=== PATIENT | male | born 1975 | race Caucasian/White ===

== ENCOUNTER 2020-10-22 00:48 | Day surgery (SDC) | payer OTHER, SELFPAY ==
[2020-10-13 14:02] VITALS: BMI 20.5
--- NOTE | 2020-10-21 19:44 | P.HP_ITS ---
History of Present Illness History of Present Illness Consent: Risks, benefits, and alternatives have been discussed and questions answered. Patient agrees to proceed with procedure. Chief complaint: neoplasm screening Narrative: Jomar Duron is a 45 year old male referred for colon cancer screening Review of Systems Review of Systems: All systems reviewed & are unremarkable except as noted in HPI and below [facility] Social History Social History Smoking status: Never smoker Alcohol use details: RARELY Substance use: never Substance use type: does not use Living arrangements: with family Spiritual care concerns: No Meds Home Medications and Allergies Home Medications Medication Instructions Recorded Confirmed Type No Home Medications 10/13/20 10/13/20 History Allergies Allergy/AdvReac Type Severity Reaction Status Date / Time No Known Allergies Allergy Verified 10/22/20 08:15 Exam Resp: Auscultation: clear to auscultation bilaterally Cardio: Rate: regular rate Rhythm: regular rhythm GI: GI Palp: Yes Soft to palpation and No Tenderness to palpation present (GI) Assessment and Plan Assessment and plan (1) Colon cancer screening: Code(s): Z12.11 - Encounter for screening for malignant neoplasm of colon Status: Acute Assessment and Plan: Colonoscopy with possible biopsy or polypectomy or cautery or injection of substances.
[2020-10-22 08:16] VITALS: BP 130/79; PULSE 96; RESP 16; TEMP 36.6; O2SAT 100
--- NOTE | 2020-10-22 08:25 | WPDANESEPPF ---
Anes - Initial Pre Proc Eval Procedure: Operation Date: 10/22/20 09:30 Proposed Procedures p Screening Colonoscopy - Royal Moreno MD Date/Time: 10/22/20 08:25 Surgeon: Royal Moreno MD Pre Op Diagnosis: neoplasm screening Patient Data Age: 45 Gender: M Height: 1.91 m Weight: 72.6 kg Last Vital Signs Temp 36.6 C 10/22/20 08:16 Pulse 96 10/22/20 08:16 Resp 16 10/22/20 08:16 BP 130/79 10/22/20 08:16 Pulse Ox 100 10/22/20 08:16 Allergies Allergy/AdvReac Type Severity Reaction Status Date / Time No Known Allergies Allergy Verified 10/22/20 08:15 Home Medications Medication Instructions Recorded Confirmed Type No Home Medications 10/13/20 10/13/20 History Patient hx anesthesia problems: none Family hx anesthesia problems: none PMFSH Social History Social History Smoking status: Never smoker Alcohol use details: RARELY Substance use: never Substance use type: does not use Living arrangements: with family Spiritual care concerns: No Anes - Eval Final PreProcedure Day of Procedure 10/22/20 08:25 Patient weight: normal Heart: regular rate and rhythm Lungs: clear to auscultation and normal air movement Airway: Mallampati scale class II Neurological: alert and oriented Last oral intake: >/= 8 hours ASA classification: I Emergent: no Anesthetic plan: proceed Anesthesia type and monitoring: general GIVS Informed Consent: The patient's anesthetic plan and its attendant risks and benefits were discussed with the patient/family/POA. Questions were solicited and answers provided to the satisfaction of the patient/family/POA.
[2020-10-22] MEDS: LACTATED RINGERS 1,000 ML 150 ML IV CONT (08:31)
[2020-10-22 09:35] VITALS: BP 92/45; PULSE 71; RESP 17; O2SAT 100
[2020-10-22 09:45] VITALS: BP 111/57; PULSE 78; RESP 17; O2SAT 100
[2020-10-22 09:55] VITALS: BP 120/78; PULSE 72; RESP 16; O2SAT 100
--- NOTE | 2020-10-22 09:57 | SUR.PHASEII ---
LEFT EYE RED AND IRRITATED - NO WATERING SEEN- DR. SAGASTUME NOTIFIED- NO ORDERS GIVEN
== END 2020-10-22 10:11 | disposition home or self-care (01) ==
PROVIDERS: PCP Family Medicine; Visit Provider Internal Medicine Gastroenterology
PROC: 0DJD8ZZ Inspection of Lower Intestinal Tract, Via Natural or Artificial Opening Endoscopic (ICD-10-PCS; CPT 45378; principal; 2020-10-22 09:30)
DX: Z12.11 Encounter for screening for malignant neoplasm of colon (principal); K57.30 Diverticulosis of large intestine without perforation or abscess without bleeding; D12.5 Benign neoplasm of sigmoid colon
CPT/HCPCS: 45385; 88305; J2704; J7120